=== PATIENT | male | born 1995 | race Caucasian/White ===

== ENCOUNTER → 2016-08-17 | Outpatient (REF) | payer MEDICAID ==
[2016-08-17 18:18] LABS: BASO % 0.3 % (0.0-1.0); EOS # 0.2 K/mm3 (0.0-0.50); EOS % 1.2 % (0.0-3.0); LYMPH # 1.8 K/mm3 (1.5-6.5); MEAN CORPUSCULAR HEMOGLOBIN 30.7 pg (27.0-33.0); MEAN CORPUSCULAR HGB CONC 31.3 g/dl (32.0-36.5); MEAN CORPUSCULAR VOLUME 98.2 fl (80.0-96.0); MONO # 0.8 K/mm3 (0.0-0.8); MONO % 6.9 % (0.0-5.0); NEUTROPHILS # 8.9 K/mm3 (1.8-7.7); NEUTROPHILS % 74.2 % (36.0-66.0)
[2016-08-17 19:27] LABS: ALBUMIN 3.9 GM/DL (3.2-5.2); ALBUMIN/GLOBULIN RATIO 1.11 (1.00-1.93); ALKALINE PHOSPHATASE 57 U/L (45-117); ALT/SGPT 21 U/L (12-78); ANION GAP 7 MEQ/L (8-16); AST/SGOT 21 U/L (15-37); BILIRUBIN,TOTAL 0.4 MG/DL (0.2-1.0); BLOOD UREA NITROGEN 13 MG/DL (7-18); CARBON DIOXIDE LEVEL 30 MEQ/L (21-32); CHLORIDE LEVEL 101 MEQ/L (98-107); CREATININE FOR GFR 1.21 MG/DL (0.70-1.30); GLOMERULAR FILTRATION RATE > 60.0 (>60); GLUCOSE, FASTING 79 MG/DL (70-105); POTASSIUM SERUM 4.6 MEQ/L (3.5-5.1); SODIUM LEVEL 138 MEQ/L (136-145); TOTAL PROTEIN 7.4 GM/DL (6.4-8.2)
== END ==
LOC: M LABDRAWC 16:38
PROVIDERS: ATTEND Internal Medicine
DX: M02.30 Reiter's disease, unspecified site (principal)

== ENCOUNTER → 2016-08-30 | Outpatient (REF) | payer OTHER ==
[2016-08-30 17:47] LABS: ANION GAP 8 MEQ/L (8-16); BLOOD UREA NITROGEN 11 MG/DL (7-18); CARBON DIOXIDE LEVEL 31 MEQ/L (21-32); CHLORIDE LEVEL 103 MEQ/L (98-107); CREATININE FOR GFR 1.15 MG/DL (0.70-1.30); GLOMERULAR FILTRATION RATE > 60.0 (>60); GLUCOSE, FASTING 85 MG/DL (70-105); POTASSIUM SERUM 4.5 MEQ/L (3.5-5.1); SODIUM LEVEL 142 MEQ/L (136-145)
== END ==
LOC: M LABDRAWC 16:11
PROVIDERS: ATTEND Internal Medicine
DX: R31.9 Hematuria, unspecified (principal)

== ENCOUNTER → 2016-09-19 | Outpatient (REF) | payer OTHER | LOC: M SMT 13:02 | PROVIDERS: ATTEND Specialist | DX: N50.819 Testicular pain, unspecified (principal); R31.29 Other microscopic hematuria ==

== ENCOUNTER → 2016-09-20 | Outpatient (CLI) | payer OTHER ==
--- NOTE | 2016-09-20 19:04 | REP ---
Scrotal sonography: History: Testicular pain. No comparison studies. Findings: High-resolution bilateral scrotal sonography shows no evidence of intratesticular mass on either side. Testicular Doppler flow is present bilaterally and is felt to be normal. Resistive indices are 0.58 on the right and 0.68 on the left. Right testicular dimensions are 3.4 x 1.8 x 2.5 cm. Left testis measures 3.5 x 1.6 x 2.6 cm. Epididymi are unremarkable. There is no other abnormalities seen. Impression: Normal bilateral scrotal sonography. Normal testicular Doppler flow. No intratesticular lesion. Signed by Paul Rainey MD 09/21/2016 10:43 A
== END ==
LOC: M RAD 16:19
PROVIDERS: ATTEND Specialist
DX: N50.819 Testicular pain, unspecified (principal)

== ENCOUNTER → 2016-09-24 | Outpatient (REF) | payer OTHER | LOC: M LAB REF 10:04 | PROVIDERS: ATTEND Physician Assistant | DX: R82.90 Unspecified abnormal findings in urine (principal) ==

== ENCOUNTER → 2016-10-02 | Outpatient (CLI) | payer OTHER ==
--- NOTE | 2016-10-02 14:26 | REP ---
MR LUMBAR SPINE WITHOUT CONTRAST: HISTORY: Sacroiliitis. Decreased signal intensity on T2-weighted images is present in the L1-2 and L4-5 intervertebral discs. The discs are decreased in height. These findings are consistent with disc degeneration. A diffuse disc bulge and small central disc extrusion are present at the L1-2 level. There is superior migration of disc material. There is minimal compression of the thecal sac without spinal cord compression. The L1 nerves exit the neural foramina without compression. There is no disc bulge or herniation at the L2-3 and L3-4 levels. The nerves exit the neural foraminal without compression. A diffuse disc bulge is present at the L4-5 level. There is minimal compression of the thecal sac. The 4 nerves exit the neural foramina without compression. A diffuse disc bulge is present at the L5-S1 level. There is minimal compression of the thecal sac. The L5 nerves exit the neural foramina without compression. The conus medullaris is normal in appearance terminating at the level of the L1-2 intervertebral disc. There is fatty infiltration of the filum terminale. A hemangioma is present in the L5 vertebral body. Increased signal intensity on T2-weighted images is present in the endplates of the L1 and L2 vertebral bodies. This represents degenerative change. IMPRESSION: 1. Diffuse disc bulge and small central disc extrusion at the L1-2 level with minimal thecal sac compression. 2. Diffuse disc bulges at the L4-5 and L5-S1 levels with minimal thecal sac compression. Signed by Tanvir Arango MD 10/02/2016 02:52 P
--- NOTE | 2016-10-02 14:54 | REP ---
MRI PELVIS/SACROILIAC JOINTS: Multiple sequences are obtained of the sacroiliac region in various planes. Both T1 and T2 weighted images are performed. No IV contrast was administered. Sacrum and visualized iliac bones demonstrate normal marrow signal with no bone marrow edema or occult fracture. There is no evidence of sacroiliitis. No abnormal signal is seen in the sacroiliac joints. A tiny amount of fluid in the inferior pelvis is of doubtful significance. No other fluid collections are seen in the visualized sacroiliac region. I see no other significant finding. IMPRESSION: No evidence of sacroiliitis or other significant abnormality in the region of the sacroiliac joints. Tiny amount of fluid in the inferior pelvis is of doubtful significance. Signed by Vinh Soriano MD 10/02/2016 03:33 P
[2016-10-02 15:45] LABS: BASO % 0.3 % (0.0-1.0); EOS # 0.1 K/mm3 (0.0-0.50); LYMPH # 2.4 K/mm3 (1.5-6.5); LYMPH % 19.6 % (24.0-44.0); MEAN CORPUSCULAR HEMOGLOBIN 30.9 pg (27.0-33.0); MEAN CORPUSCULAR HGB CONC 32.6 g/dl (32.0-36.5); MEAN CORPUSCULAR VOLUME 94.7 fl (80.0-96.0); MONO # 0.7 K/mm3 (0.0-0.8); MONO % 5.9 % (0.0-5.0); NEUTROPHILS % 71.1 % (36.0-66.0); RED CELL DISTRIBUTION WIDTH 12.5 % (11.5-14.5); WHITE BLOOD COUNT 11.3 K/mm3 (4.0-10.0)
[2016-10-02 15:59] LABS: ALBUMIN 3.7 GM/DL (3.2-5.2); ALBUMIN/GLOBULIN RATIO 1.32 (1.00-1.93); ALKALINE PHOSPHATASE 74 U/L (45-117); ALT/SGPT 22 U/L (12-78); ANION GAP 5 MEQ/L (8-16); AST/SGOT 20 U/L (15-37); BILIRUBIN,TOTAL 0.2 MG/DL (0.2-1.0); BLOOD UREA NITROGEN 18 MG/DL (7-18); CALCIUM LEVEL 8.8 MG/DL (8.5-10.1); CARBON DIOXIDE LEVEL 31 MEQ/L (21-32); CHLORIDE LEVEL 104 MEQ/L (98-107); CREATININE FOR GFR 1.35 MG/DL (0.70-1.30); GLOMERULAR FILTRATION RATE > 60.0 (>60); GLUCOSE, FASTING 110 MG/DL (70-105); POTASSIUM SERUM 4.2 MEQ/L (3.5-5.1); SODIUM LEVEL 140 MEQ/L (136-145); TOTAL PROTEIN 6.5 GM/DL (6.4-8.2)
--- NOTE | 2016-10-02 15:59 | REP ---
PARANASAL SINUSES: Four views paranasal sinuses performed. There appears to be trace mucosal thickening in the ethmoid sinuses. A single lateral view shows possible enlargement of the adenoids and palatine tonsils with no visualization of the nasopharyngeal airway. No air fluid levels are seen. IMPRESSION: Trace mucosal thickening ethmoid sinuses. No air fluid levels in the paranasal sinuses. Possible enlargement of adenoids and palatine tonsils. Signed by Vinh Soriano MD 10/02/2016 04:30 P
== END ==
LOC: M RAD 12:31
PROVIDERS: ATTEND Internal Medicine
DX: M02.30 Reiter's disease, unspecified site (principal); M51.26 Other intervertebral disc displacement, lumbar region; J32.2 Chronic ethmoidal sinusitis

== ENCOUNTER → 2016-10-25 | Outpatient (CLI) | payer OTHER ==
--- NOTE | 2016-11-04 23:56 | ECWPNPC ---
PATIENT NAME: KUNAL PRESLEY : 1995 GENDER: MALE VISIT DATE: 10/25/2016 DISCHARGE DATE: 10/25/16 1653 VISIT LOCKED DATE TIME: PHYSICIAN: RALF GRIGGS RESOURCE: RALF GRIGGS REASON FOR APPOINTMENT 1. CHRONIC PAIN HISTORY OF PRESENT ILLNESS GENERAL: 21 YEAR OLD MALE PATIENT WITH HISTORY OF CHRONIC BACK PAIN. PATIENT DESCRIBES THE PAIN ACHING, SHARP, STABBING, AND SHOOTING WITH A PAIN SCORE OF 10/10 ON TODAY'S VISIT. PATIENT STATES THAT HE IS UNSURE ON EXACTLY WHEN THE PAIN IN HIS BACK BEGAN AND IT COULD HAVE BEEN AROUND JULY 2015. PATIENT STATES THAT THE PAIN PROGRESSIVELY WORSENS WITH WORK EACH DAY. PATIENT STATES THAT HE DOES HAVE RADIATING PAIN DOWN BOTH HIS LEGS. PATIENT STATES THAT SITTING, STANDING, AND DRIVING FOR A PROLONGED PERIOD OF TIME INCREASES HIS PAIN. PATIENT STATES THAT HE DOES GET SOME MINOR RELIEF FROM LAYING FLAT ON HIS STOMACH AND DOING SOME PHYSICAL THERAPY EXERCISES. PATIENT DENIES UNEXPLAINABLE WEIGHT LOSS, FEVER, CHILLS, NEW CHANGES ON HIS URINARY OR BOWEL CONTROL. FALL RISK SCREENING: SCREENING :NO FALLS IN THE PAST YEAR PAIN SCREENING: PATIENT HAS A COMPLAINT OF ACUTE OR CHRONIC PAIN :YES CURRENT MEDICATIONS TAKING MULTIVITAMIN ADULT - TABLET ORALLY TAKING ZOFRAN 4 MG TABLET 1 TAB ORALLY Q8H PRN NAUSEA NOT-TAKING TYLENOL WITH CODEINE #3 NOT-TAKING AMOXICILLIN 250 MG/5ML SUSPENSION RECONSTITUTED 1 TSP SWISH AND SWALLOW ORALLY TID NOT-TAKING CRANBERRY PLUS VITAMIN C 140-100-3 MG-MG-UNIT CAPSULE ORALLY NOT-TAKING NAPROXEN 500 MG TABLET 1 TABLET NEEDED ORALLY EVERY 12 HRS, NOTES: MYNOR KEMP NOT-TAKING ONDANSETRON 4 MG TABLET DISPERSIBLE 1 TABLET ON THE TONGUE AND ALLOW TO DISSOLVE ORALLY EVERY 8 HRS, NOTES: BRETT ASHFORD NOT-TAKING ZYRTEC-D ALLERGY & CONGESTION 5-120 MG TABLET EXTENDED RELEASE 12 HOUR 1 TABLET ORALLY TWICE A DAY NOT-TAKING CLEAR EYES COMPLETE SOLUTION OPHTHALMIC NOT-TAKING PROBIOTIC TABLET DELAYED RELEASE ORALLY NOT-TAKING MAGNESIUM 500 MG TABLET 1 TABLET WITH A MEAL ORALLY ONCE A DAY NOT-TAKING MECLIZINE HCL 25 MG TABLET 1 TABLET NEEDED ORALLY THREE TIMES DAILY NEEDED, NOTES: BRETT ASHFORD NOT-TAKING GARLIC 300 MG TABLET 1 TAB ORALLY ONCE DAILY NOT-TAKING BACTRIM DS 800-160 MG TABLET 1 TABLET ORALLY TWICE A DAY NOT-TAKING NYSTATIN THROAT/SUSPENSION [id number] UNIT/ML SUSPENSION DIRECTED MOUTH/THROAT FOUR TIMES DAILY UNKNOWN ZOLOFT 100 MG TABLET 1 TABLET ORALLY ONCE A DAY, NOTES: NOT TAKING REFUSED MEDICATION LIST REVIEWED AND RECONCILED WITH THE PATIENT PAST MEDICAL HISTORY ACNE SEASONAL ALLERGIES 2013 INFECTIOUS MONONUCLEOSIS ALLERGIES CECLOR: UNSURE: ALLERGY DOXYCYCLINE: EDEMA: ALLERGY SURGICAL HISTORY TONSILECTOMY (DID NOT REMOVE ADNOIDS) [facility] 04/27 WISDOM TEETH EXTRACTION-LEFT SIDE TOP AND BOTTOM 03/28 FAMILY HISTORY FATHER: ALIVE 62 YRS, ESOPHAGUS CANCER, DIAGNOSED WITH CANCER MOTHER: ALIVE 49 YRS, CROHNS DISEASE PATERNAL GRAND FATHER: , CANCER,LUNG PATERNAL GRAND MOTHER: , CANCER MATERNAL GRAND FATHER: ALIVE, NO KNOWN MEDICAL PROBLEMS MATERNAL GRAND MOTHER: ALIVE, NO KNOWN MEDICAL PROBLEMS 2 BROTHER(S) - HEALTHY. NO KNOWN FAMILY HISTORY OF ANY UROLOGICALLY RELATED DISEASES/CANCERS. MOM HAS CROHN'S DISEASE. SOCIAL HISTORY GENERAL: TOBACCO USE ARE YOU A:NONSMOKER SMOKED AT AGE 14 X 1 YEAR 07/18 PPD BMI CARE GOAL FOLLOW-UP BELOW NORMAL BMI FOLLOW-UPDIETARY EDUCATION FOR WEIGHT GAIN ALCOHOL SCREENING POINTS: 4, INTERPRETATION: POSITIVE. RECREATIONAL DRUG USE DRUG USE?YES MARIJUANA USE DAILY CAFFEINE CAFFEINE USE?YES 2 CUPS/DAY SEXUAL HX HAD SEX IN THE LAST 12 MONTHS (VAGINAL, ORAL, OR ANAL)?: YES, WITH: WOMEN ONLY, USE PROTECTION?: YES, HOW OFTEN?: ALL OF THE TIME, HAVE YOU EVER HAD AN STD?: NO. HIV / HEP-C SCREENING HIV TEST OFFERED TO PATIENT:YES DATE OFFERED:09/05/2016 TEST ACCEPTED:NO REASON:PATIENT DECLINED HEP-C TEST OFFERED TO PATIENT:NO -N/A OCCUPATION: WORKS @ [employer]. DIET: REGULAR. EXERCISE: 6 DAYS WEEK AT GYM, NOT SINCE BECAME SICK. MARITAL STATUS: SINGLE. OTHERS AT HOME: FATHER. DENOMINATIONAL NO HINDU BELIEFS THAT WOULD IMPACT HEALTH CARE. LANGUAGE TURKISH. LEARNING BARRIERS / SPECIAL NEEDS BARRIERS TO LEARNING?NO HEARING IMPAIRED?NO VISION IMPAIRED?NO COGNITIVELY IMPAIRED?NO READINESS TO LEARN?YES LEARNING PREFERENCES?NO LEARNING CAPABILITIES PRESENT?YES EMOTIONAL BARRIERS?NO SPECIAL DEVICES?NO DENTAL AMALGAM PROCESSOR NEEDED?NO TRAVEL OUTSIDE US: DENIES. DOMESTIC VIOLENCE: NONE. SERGEI [facility]. HOSPITALIZATION/MAJOR DIAGNOSTIC PROCEDURE SURGERY REVIEW OF SYSTEMS CONSTITUTIONAL: ANY CHANGE IN YOUR MEDICAL CONDITION? YES PT TO HAVE COLONOSCOPY TO CHECK FOR CROHN'S DISEASE&NBSP;. CHILLS &NBSP;&NBSP; NO&NBSP;. FEVER &NBSP;&NBSP; NO&NBSP;. INFECTION: DO YOU HAVE NEW INFECTIONS? NO . DO YOU HAVE HISTORY OF MRSA? NO . MUSCULOSKELETAL: ANY NEW PATTERNS OF PAIN OR NUMBNESS? NO . SYTEMIC LUPUS NO . GASTROENTEROLOGY: ANY NEW CHANGE IN BOWEL CONTROL? NO . BARRETTS ESOPHAGUS NO . CIRRHOSIS NO . HEPATITIS NO . LIVER FAILURE NO . ACID REFLUX NO . UNEXPLAINED WEIGHT LOSS NO . GENITOURINARY: ANY NEW CHANGE IN BLADDER CONTROL? NO . IS THERE A CHANCE YOU COULD BE ? NO . HEMATOLOGY/LYMPH: DO YOU TAKE ANY BLOOD THINNERS? (FOR EXAMPLE- COUMADIN, PLAVIX, AGGRENOX, PLATEL, PRADAXA, OR XARELTO) NO . WHEN WAS YOUR LAST DOSE? DATE: TIME: . LOW PLATELET COUNT NO . SICKLE CELL DISEASE NO . VON WILLIEBRANDS NO . FACTOR V LEIDEN NO . THALLASEMIA NO . ANEMIA NO . EASY BRUISING NO . NEUROLOGY: HAVE YOU FALLEN IN THE PAST 6 MONTHS? NO . ANY NEW EXTREMITY NUMBNESS OR WEAKNESS? NO . HEAD INJURY NO . DEMENTIA NO . CEREBRAL PALSY NO . MULTIPLE SCLEROSIS NO . DIZZINESS NO . HEADACHE NO . STROKES NO . VERTIGO NO . CARDIOLOGY: DO YOU HAVE A PACEMAKER OR DEFIBRILLATOR? NO . ANGINA NO . HEART ATTACK NO . HEART SURGERY NO . CONGESTIVE HEART FAILURE/FLUID OVERLOAD NO . CHEST PAIN NO . HIGH BLOOD PRESSURE NO . IRREGULAR HEART BEAT NO . RESPIRATORY: HAVE YOU BEEN SICK IN THE PAST WEEK? NO . FEVER NO . FLU LIKE SYMPTOMS? NO . CPAP NO . BYPAP NO . ASTHMA NO . EMPHYSEMA NO . CHRONIC LUNG DISEASES NO . SHORTNESS OF BREATH ON EXERTION NO . COUGH NO . SNORING NO . INTEGUMENTARY: DO YOU HAVE ANY RASHES OR OPEN SORES? NO . ALLERGIC/IMMUNO: ARE YOU ALLERGIC TO SHELLFISH OR IV DYE? NO . ANY NEW ALLERGIES? NO . PSYCHIATRIC: DO YOU HAVE THOUGHTS OF HURTING YOURSELF OR SOMEONE ELSE? NO . ARE YOU ABUSED, NEGLECTED, OR IN AN UNSAFE ENVIRONMENT? NO . ENDOCRINOLOGY: ARE YOU DIABETIC? NO . THYROID DISORDER NO . OTHER: DO YOU NEED ANY PRESCRIPTIONS? NO . IF YES, PLEASE LIST: ____ . ANY NEW PROBLEMS WITH YOUR MEDICATIONS? NO . WHEN DID YOU LAST EAT? ____ . WHEN DID YOU LAST DRINK? ____ . WHAT DID YOU LAST DRINK? ____ . NAME OF PERSON DRIVING YOU HOME? ____ . DO YOU HAVE ANY OTHER QUESTIONS OR CONCERNS NO . REVIEWED BY: PROVIDER: RALF GRIGGS MD . VITAL SIGNS WT 157 LBS, HT 65 IN, BMI 26.12 INDEX, BP 153/70 MM HG, HR 52 /MIN, RR 16 /MIN, TEMP 98.7 F, OXYGEN SAT % 98, BLOOD GLUCOSE LEVEL AW 1532, REVIEWED BY: FARZANA. EXAMINATION GENERAL: PATIENT IS ALERT O X 3 AND COOPERATIVE. PATIENT IS ABLE TO FLEX HIS BACK TO 90 DEGREES AND EXTEND HIS BACK TO 10 DEGREES. THERE IS TENDERNESS IN THE LOW BACK PARASPINAL MUSCLE GROUP WITH BANDS OF TISSUES, RESTRICTION OF MOVEMENT, AND PRESENCE OF TRIGGER POINTS. PATIENT'S RIGHT LEG IS WEAKER AT FLEXION AND EXTENSION COMPARED TO THE LEFT LEG. STRAIGHT LEG RAISING IS POSITIVE FOR PAIN AT 45 DEGREES. PATIENT ALSO HAS SOME TENDERNESS IN THE SACROILIAC AREA. MRI OF THE LUMBAR SPINE DONE ON 10/02/2016 SHOWS DIS BULGES AND DISC EXTRUSIONS AT MULTIPLE LEVELS. ASSESSMENTS INTERVERTEBRAL DISC DISORDERS WITH RADICULOPATHY, LUMBOSACRAL REGION - M51.17 (PRIMARY) INTERVERTEBRAL DISC DISORDERS WITH RADICULOPATHY, LUMBAR REGION - M51.16 TREATMENT INTERVERTEBRAL DISC DISORDERS WITH RADICULOPATHY, LUMBOSACRAL REGION NOTES: WE DISCUSSED SEVERAL ISSUES WITH MR. PRESLEY'S PAIN MANAGEMENT CASE. AT THIS TIME THE PATIENT WILL CONTINUE ON THE SAME MEDICATION REGIMEN BEFORE. AFTER EXAMINING THE PATIENT AND REVIEWING THE MRI PATIENT IS A GOOD CANDIDATE FOR A LUMBAR EPIDURAL. WE DISCUSSED THE RISK, BENEFITS, AND ALTERNATIVES AND THE PATIENT WOULD LIKE TO PROCEED. PATIENT WILL BE BOOKED PENDING APPROVAL. INSTRUCTIONS WERE GIVEN, QUESTIONS WERE ANSWERED, PATIENT REPORTS UNDERSTANDING AND AGREES WITH THE PLAN. I, JASON GARCIA, DOCUMENTED THE ABOVE INFORMATION ACTING A SCRIBE FOR DR. GRIGGS. I HAVE REVIEWED THE ABOVE DOCUMENT, WRITTEN BY JASON CHATMANIBJob AND I VERIFY THAT IT IS ACCURATE. , DR. ESCAMILLA -THANK YOU FOR YOUR KIND REFERRAL OF MR. PRESLEY. IF YOU WOULD LIKE TO DISCUSS HIS CASE WITH ME, PLEASE CALL ME AT THE PAIN CENTER AT [phone]. OTHERS NOTES: WHAT IS LUMBAR EPIDURAL INJECTION? MATERIAL WAS PRINTED,LUMBAR EPIDURAL INJECTION: YOUR PROCEDURE MATERIAL WAS PRINTED,WHAT IS LUMBAR EPIDURAL INJECTION? MATERIAL WAS PRINTED. PROCEDURE CODES FA211 ESTABILISHED PATIENT [facility] CHARGE G8730 PAIN ASSESS POS TOOL F/U PLAN DOC G8427 DOC MEDS VERIFIED W/PT OR RE DISPOSITION & COMMUNICATION FOLLOW UP LESI PENDING APPROVAL ELECTRONICALLY SIGNED BY RALF GRIGGS MD ON 11/04/2016 AT 04:32 PM EDT DISCLAIMER : THIS IS A VISIT SUMMARY EXTRACTED FROM THE [employer] CHART. IT IS NOT A COPY OF THE [employer] PROGRESS NOTE. MTDD
== END ==
LOC: M PAIN 15:20
PROVIDERS: ATTEND Anesthesiology
DX: G89.29 Other chronic pain (principal); M51.17 Intervertebral disc disorders with radiculopathy, lumbosacral region; M51.16 Intervertebral disc disorders with radiculopathy, lumbar region; Z88.8 Allergy status to other drugs, medicaments and biological substances; Z79.899 Other long term (current) drug therapy

== ENCOUNTER → 2016-10-26 | Outpatient (CLI) | payer OTHER ==
[~2016-10-26] MED LIST: ISOVUE-M 300 61% 15ML VIAL (Q9967) As Ordered ONE; LIDOCAINE 1% SDV INJ 30 ML VIAL As Ordered ONE; diazePAM 5 MG TAB As Ordered ONE; methylPREDNISolone SUSP 40 MG/ML (DEPO-medrol) VIAL (J1030) As Ordered ONE; oxyCODONE 5MG TAB As Ordered ONE
--- NOTE | 2016-10-26 13:02 | REP ---
Partial lumbar spine series: Three views. History: Injection procedure for pain. 4 seconds of fluoroscopy time is reported. Findings: A sequence of three last image hold fluoroscopic spot radiographs of the lumbar spine document needle position and contrast injection associated with lumbar epidural injection procedure. Signed by Paul Rainey MD 10/26/2016 01:25 P
--- NOTE | 2016-10-31 23:18 | ECWPNPC ---
PATIENT NAME: KUNAL PRESLEY : 1995 GENDER: MALE VISIT DATE: 10/26/2016 DISCHARGE DATE: 10/26/16 1023 VISIT LOCKED DATE TIME: PHYSICIAN: RALF GRIGGS RESOURCE: RALF GRIGGS REASON FOR APPOINTMENT 1. LESI HISTORY OF PRESENT ILLNESS HISTORY OF PRESENT ILLNESS: PAIN THE PATIENT DESCRIBES THE PAIN... FALL RISK SCREENING: SCREENING :NO FALLS IN THE PAST YEAR CURRENT MEDICATIONS TAKING MULTIVITAMIN ADULT - TABLET ORALLY , NOTES: 10/25/16 TAKING ZOFRAN 4 MG TABLET 1 TAB ORALLY Q8H PRN NAUSEA, NOTES: 10/26/16 0500 NOT-TAKING TYLENOL WITH CODEINE #3 NOT-TAKING AMOXICILLIN 250 MG/5ML SUSPENSION RECONSTITUTED 1 TSP SWISH AND SWALLOW ORALLY TID NOT-TAKING CRANBERRY PLUS VITAMIN C 140-100-3 MG-MG-UNIT CAPSULE ORALLY NOT-TAKING NAPROXEN 500 MG TABLET 1 TABLET NEEDED ORALLY EVERY 12 HRS, NOTES: MYNOR KEMP NOT-TAKING ONDANSETRON 4 MG TABLET DISPERSIBLE 1 TABLET ON THE TONGUE AND ALLOW TO DISSOLVE ORALLY EVERY 8 HRS, NOTES: BRETT ASHFORD NOT-TAKING ZYRTEC-D ALLERGY & CONGESTION 5-120 MG TABLET EXTENDED RELEASE 12 HOUR 1 TABLET ORALLY TWICE A DAY NOT-TAKING CLEAR EYES COMPLETE SOLUTION OPHTHALMIC NOT-TAKING PROBIOTIC TABLET DELAYED RELEASE ORALLY NOT-TAKING MAGNESIUM 500 MG TABLET 1 TABLET WITH A MEAL ORALLY ONCE A DAY NOT-TAKING MECLIZINE HCL 25 MG TABLET 1 TABLET NEEDED ORALLY THREE TIMES DAILY NEEDED, NOTES: BRETT ASHFORD NOT-TAKING GARLIC 300 MG TABLET 1 TAB ORALLY ONCE DAILY NOT-TAKING BACTRIM DS 800-160 MG TABLET 1 TABLET ORALLY TWICE A DAY NOT-TAKING NYSTATIN THROAT/SUSPENSION 943914 UNIT/ML SUSPENSION DIRECTED MOUTH/THROAT FOUR TIMES DAILY UNKNOWN ZOLOFT 100 MG TABLET 1 TABLET ORALLY ONCE A DAY, NOTES: NOT TAKING REFUSED MEDICATION LIST REVIEWED AND RECONCILED WITH THE PATIENT PAST MEDICAL HISTORY ACNE SEASONAL ALLERGIES 2014 INFECTIOUS MONONUCLEOSIS RIETER'S ARTHRITIS ALLERGIES CECLOR: UNSURE: ALLERGY DOXYCYCLINE: EDEMA: ALLERGY SOCIAL HISTORY GENERAL: PAIN CLINIC PFS, CLERGY, PUBLIC HEALTH REFERRALS CLERGY REFERRAL NEEDED?NO WAS THE PROVIDER NOTIFIED OF ANY PERTINENT INFO?NO PFS REFERRAL NEEDED?NO PUBLIC HEALTH REFERRAL NEEDED?NO PATIENT: ____. REVIEW OF SYSTEMS CONSTITUTIONAL: ANY CHANGE IN YOUR MEDICAL CONDITION? YES BEING WOURKED UP FOR CROHN'S DISEASE&NBSP;. CHILLS &NBSP;&NBSP; NO&NBSP;. FEVER &NBSP;&NBSP; NO&NBSP;. INFECTION: DO YOU HAVE NEW INFECTIONS? NO . DO YOU HAVE HISTORY OF MRSA? NO . MUSCULOSKELETAL: ANY NEW PATTERNS OF PAIN OR NUMBNESS? NO . GASTROENTEROLOGY: ANY NEW CHANGE IN BOWEL CONTROL? NO . GENITOURINARY: ANY NEW CHANGE IN BLADDER CONTROL? NO . IS THERE A CHANCE YOU COULD BE ? NO . HEMATOLOGY/LYMPH: DO YOU TAKE ANY BLOOD THINNERS? (FOR EXAMPLE- COUMADIN, PLAVIX, AGGRENOX, PLATEL, PRADAXA, OR XARELTO) NO . WHEN WAS YOUR LAST DOSE? DATE: TIME: . NEUROLOGY: HAVE YOU FALLEN IN THE PAST 6 MONTHS? NO . ANY NEW EXTREMITY NUMBNESS OR WEAKNESS? NO . CARDIOLOGY: DO YOU HAVE A PACEMAKER OR DEFIBRILLATOR? NO . RESPIRATORY: HAVE YOU BEEN SICK IN THE PAST WEEK? NO . FEVER NO . FLU LIKE SYMPTOMS? NO . COUGH NO . INTEGUMENTARY: DO YOU HAVE ANY RASHES OR OPEN SORES? NO . ALLERGIC/IMMUNO: ARE YOU ALLERGIC TO SHELLFISH OR IV DYE? NO . ANY NEW ALLERGIES? NO . PSYCHIATRIC: DO YOU HAVE THOUGHTS OF HURTING YOURSELF OR SOMEONE ELSE? NO . ARE YOU ABUSED, NEGLECTED, OR IN AN UNSAFE ENVIRONMENT? NO . ENDOCRINOLOGY: ARE YOU DIABETIC? NO . OTHER: DO YOU NEED ANY PRESCRIPTIONS? NO . IF YES, PLEASE LIST: ____ . ANY NEW PROBLEMS WITH YOUR MEDICATIONS? NO . WHEN DID YOU LAST EAT? ____10/25/16 2100 . WHEN DID YOU LAST DRINK? ____10/26/16 0600 . WHAT DID YOU LAST DRINK? ____WATER . NAME OF PERSON DRIVING YOU HOME? ____CODY . DO YOU HAVE ANY OTHER QUESTIONS OR CONCERNS NO . REVIEWED BY: PROVIDER: . VITAL SIGNS WT 157 LBS, HT 65 IN, BMI 26.12 INDEX, BP 127/76 MM HG, HR 86 /MIN, RR 16 /MIN, TEMP 99.9 F, OXYGEN SAT % 99%, NA INITIALS SC09:06, REVIEWED BY: MLF. ASSESSMENTS INTERVERTEBRAL DISC DISORDERS WITH RADICULOPATHY, LUMBOSACRAL REGION - M51.17 (PRIMARY) PROCEDURES PRE PROCEDURE DIAGNOSIS LUMBOSACRAL RADICULOPATHY, LUMBOSACRAL DISC DISORDER WITH RADICULOPATHY POST PROCEDURE DIAGNOSIS LUMBOSACRAL RADICULOPATHY , LUMBOSACRAL DISC DISORDER WITH RADICULOPATHY PROCEDURE L5-S1 EPIDURAL STEROID INJECTION UNDER FLUOROSCOPIC GUIDANCE SURGEON DR. RALF GRIGGS ELECTRICAL APPLIANCE REPAIRER NONE ANESTHESIA LOCAL PRE PROCEDURE NOTE THE PATIENT HAS A HISTORY OF CHRONIC LOW BACK PAIN. I EVALUATE THE PATIENT AND REVIEWED THE CHART. I WENT OVER THE RISKS, ALTERNATIVES, AND BENEFITS ASSOCIATED WITH THIS PROCEDURE. THE PATIENT WOULD LIKE TO PROCEED AND GIVE CONSENT TO PERFORMED THE PROCEDURE. THE PATIENT DENIES UNEXPLAINABLE WEIGHT LOSS, FEVER, CHILLS, OR NEW CHANGES IN URINARY OR BOWEL CONTROL. DESCRIPTION OF PROCEDURE THE PATIENT WAS BROUGHT TO THE PROCEDURE ROOM AND PLACED IN THE PRONE POSITION. THE LUMBOSACRAL AREA WAS CLEANED WITH BETADINE SOLUTION AND DRAPED ASEPTICALLY. THE PROCEDURE WAS DONE UNDER STERILE CONDITIONS. I CHECKED LATERALITY AND THE LEVEL WHERE THE PROCEDURE WAS GOING TO BE PERFORMED WITH THE PATIENT AND THE SUPPORTING STAFF AT THE MOMENT OF THE TIME OUT IN THE PROCEDURE ROOM. UNDER FLUOROSCOPIC GUIDANCE, THE TARGET POINT WAS SELECTED AT THE INTERLAMINAR LEVEL OF L5-S1. LIDOCAINE WAS USED TO NUMB THE SKIN AND THE SUBCUTANEOUS TISSUE BELOW IT. EPIDURAL TUOHY NEEDLE, 17-GAUGE, WAS ADVANCED UNDER FLUOROSCOPIC GUIDANCE AND FOLLOWING PATIENT FEEDBACK UNTIL THE EPIDURAL SPACE WAS REACHED, 7 CM DEEP INTO THE SKIN BY THE LOSS OF RESISTANCE TECHNIQUE. ISOVUE M DYE 30%, 0.25 ML, WAS INJECTED SHOWING ADEQUATE SPREAD OF THE DYE. THEN, A SOLUTION OF 3 ML OF NORMAL SALINE WITH DEPO-MEDROL 60 MG WAS INJECTED SLOWLY FOLLOWING PATIENT FEEDBACK. THERE WAS NO EVIDENCE OF BLOOD, PARESTHESIA OR CEREBROSPINAL FLUID DURING THE PROCEDURE. THE PATIENT WAS SENT TO THE RECOVERY ROOM. THE PATIENT WAS MOVING THE EXTREMITIES AND DOING WELL. THERE WAS NO COMPLICATION DURING THE PROCEDURE. FLUOROSCOPY TIME WAS 4 SECONDS. POST PROCEDURE NOTE THE PATIENT WILL BE SEEN IN A FOLLOW UP IN THE NEXT FEW WEEKS. INSTRUCTIONS WERE GIVEN, QUESTIONS WERE ANSWERED, AND THE PATIENT EXPRESSED UNDERSTANDING AND AGREES WITH THE PLAN. I, JASON GARCIA, DOCUMENTED THE ABOVE INFORMATION ACTING A SCRIBE FOR DR. GRIGGS. I HAVE REVIEWED THE ABOVE DOCUMENT, WRITTEN BY JASON SKINNER AND I VERIFY THAT IT IS ACCURATE. DIAGNOSTIC IMAGING [facility] FLUORO GUIDE SPINE INJECTION (PAIN)[id number] PROCEDURE CODES 08269 LUMBAR/SACRAL W/ IMAGING 6045F RADXPS IN END [id number] PXD DISPOSITION & COMMUNICATION FOLLOW UP 3 WEEKS ELECTRONICALLY SIGNED BY RALF GRIGGS MD ON 10/31/2016 AT 01:03 PM EDT DISCLAIMER : THIS IS A VISIT SUMMARY EXTRACTED FROM THE [employer] CHART. IT IS NOT A COPY OF THE [employer] PROGRESS NOTE. MTDYuliet
== END ==
LOC: M PAIN 09:00
PROVIDERS: ATTEND Anesthesiology
DX: G89.29 Other chronic pain (principal); M51.17 Intervertebral disc disorders with radiculopathy, lumbosacral region; M02.30 Reiter's disease, unspecified site; M19.90 Unspecified osteoarthritis, unspecified site; Z88.8 Allergy status to other drugs, medicaments and biological substances; Z79.899 Other long term (current) drug therapy
CPT/HCPCS: 62323; J1030; Q9967

== ENCOUNTER → 2016-10-30 | Outpatient (REF) | payer OTHER ==
[2016-10-31 13:00] LABS: BASO % 0.3 % (0.0-1.0); EOS # 0.5 K/mm3 (0.0-0.50); EOS % 3.3 % (0.0-3.0); LYMPH # 2.5 K/mm3 (1.5-6.5); MEAN CORPUSCULAR HEMOGLOBIN 29.9 pg (27.0-33.0); MEAN CORPUSCULAR HGB CONC 32.3 g/dl (32.0-36.5); MEAN CORPUSCULAR VOLUME 92.4 fl (80.0-96.0); MONO # 0.9 K/mm3 (0.0-0.8); MONO % 6.4 % (0.0-5.0); NEUTROPHILS # 10.5 K/mm3 (1.8-7.7); RED CELL DISTRIBUTION WIDTH 12.8 % (11.5-14.5); WHITE BLOOD COUNT 14.4 K/mm3 (4.0-10.0)
[2016-10-31 13:18] LABS: ALBUMIN 3.9 GM/DL (3.2-5.2); ALBUMIN/GLOBULIN RATIO 1.18 (1.00-1.93); ALKALINE PHOSPHATASE 68 U/L (45-117); ALT/SGPT 27 U/L (12-78); ANION GAP 6 MEQ/L (8-16); AST/SGOT 40 U/L (15-37); BILIRUBIN,TOTAL 0.2 MG/DL (0.2-1.0); BLOOD UREA NITROGEN 18 MG/DL (7-18); CALCIUM LEVEL 8.4 MG/DL (8.5-10.1); CARBON DIOXIDE LEVEL 28 MEQ/L (21-32); CHLORIDE LEVEL 103 MEQ/L (98-107); CREATININE FOR GFR 0.99 MG/DL (0.70-1.30); GLOMERULAR FILTRATION RATE > 60.0 (>60); GLUCOSE, FASTING 87 MG/DL (70-105); POTASSIUM SERUM 4.1 MEQ/L (3.5-5.1); SODIUM LEVEL 137 MEQ/L (136-145); TOTAL PROTEIN 7.2 GM/DL (6.4-8.2)
== END ==
LOC: M LABDRAWC 11:54
PROVIDERS: ATTEND Internal Medicine
DX: M02.30 Reiter's disease, unspecified site (principal)

== ENCOUNTER → 2016-11-30 | Outpatient (CLI) | payer OTHER ==
[~2016-11-30] MED LIST changes: +E-Z-GAS II EFFERVESCENT PACKET (SODIUM BICARB./CITRIC ACID/SIMETHICONE) As Ordered ONE; +E-Z-HD 98% w/w 340GM SUSP BTL As Ordered ONE; +E-Z-PAQUE 96% w/w SUSP 176GM BTL As Ordered ONE; -ISOVUE-M 300 61% 15ML VIAL (Q9967) As Ordered ONE; -LIDOCAINE 1% SDV INJ 30 ML VIAL As Ordered ONE; -diazePAM 5 MG TAB As Ordered ONE; -methylPREDNISolone SUSP 40 MG/ML (DEPO-medrol) VIAL (J1030) As Ordered ONE; -oxyCODONE 5MG TAB As Ordered ONE
--- NOTE | 2016-11-30 16:57 | REP ---
UPPER GI AIR CONTRAST AND SMALL BOWEL FOLLOW-THROUGH: The procedure was performed under the direct supervision of Dr. Rainey. The images were reviewed with Dr. Rainey. The overnight houseperson film shows no organomegaly or pathological masses. The intestinal gas pattern is nonspecific. Liquid barium and gas producing granules were given in the erect position as well as liquid barium in the prone oblique position in order to perform a double contrast upper GI examination. Additionally liquid barium was given at the end of the examination in order to perform a small bowel follow-through. The oral and pharyngeal stages of deglutition are unremarkable. Esophageal transport is prompt and efficient and there is no esophagitis, stricture, mucosal ring, or hiatal hernia. There is gastroesophageal reflux demonstrated to above the level of the arnulfo. The stomach nation are normally outlined. The rugal folds are smooth and regular. There is no gastritis, neoplasm or ulcer disease. The duodenal nation are normally outlined. The mucosal folds are smooth and regular. There is no duodenitis, pancreatitis, peptic ulcer disease, or neoplasm. The visualized portion of the proximal small bowel appears normal in course and caliber. The barium column was followed through the small bowel to the level of the terminal ileum. Small bowel transit time was approximately 30 minutes. During fluoroscopy gentle palpation shows all loops are freely movable and pliable. There are no fixed or angulated loops. The small bowel mucosal pattern is normal in course and caliber. There is no transition to suggest a partial small bowel obstruction. Spot filming of terminal ileum shows it to be unremarkable. IMPRESSION: There is gastroesophageal reflux demonstrated to above the level of the arnulfo, otherwise unremarkable double contrast upper GI and small bowel follow-through examination. 2 minutes and 26 seconds of fluoroscopy time was utilized for this procedure. Reviewed by IRVING Jessica 12/03/2016 05:35 PEdited and Signed by Paul Rainey MD 12/04/2016 05:04 P
== END ==
LOC: M RAD 08:15
PROVIDERS: ATTEND Internal Medicine
DX: K50.90 Crohn's disease, unspecified, without complications (principal)

== ENCOUNTER → 2017-03-28 | Outpatient (REF) | payer OTHER | LOC: M LAB REF 09:18 | PROVIDERS: ATTEND Internal Medicine | DX: M47.011 Anterior spinal artery compression syndromes, occipito-atlanto-axial region (principal) ==

== ENCOUNTER → 2017-08-02 | Outpatient (REF) | payer OTHER, MEDICAID ==
[2017-08-02 14:00] LABS: MYOGLOBIN SCREEN, URINE POSITIVE (NEGATIVE)
[2017-08-02 14:13] LABS: INR 1.07
[2017-08-02 14:14] LABS: PARTIAL THROMBOPLASTIN TIME 33.6 SECONDS (26.8-37.9)
[2017-08-02 14:39] LABS: COMPLEMENT C3 123 MG/DL (90-180); COMPLEMENT C4 27.2 MG/DL (10-40); CPK CREATINE PHOSPHOKINASE 264 U/L (39-308)
[2017-08-02 14:48] LABS: HEPATITIS B SURFACE ANTIBODY NEGATIVE (POSITIVE)
[2017-08-02 15:26] LABS: HEPATITIS C VIRUS ABY INDEX 0.1 INDEX (<0.8)
[2017-08-02 15:27] LABS: HEPATITIS B CORE ANTIBODY IGM NEGATIVE (NEGATIVE)
[2017-08-02 15:32] LABS: HEPATITIS B SURFACE ANTIGEN NEGATIVE (NEGATIVE)
[2017-08-06 00:06] LABS: ANCA-ATYPICAL <1:20 titer (Neg:<1:20); ANTI DOUBLE STRAND-DNA AB 1 IU/mL (0-9); ANTI-GLOMERULAR BASEMENT MEMB 3 units (0-20); ANTINUCLEAR ANTIBODIES DIRECT Negative (Negative); CYTOPLASMIC NEUTROP AB ANCA-C <1:20 titer (Neg:<1:20); PERINUCLEAR AB ANCA-P <1:20 titer (Neg:<1:20)
== END ==
LOC: M LAB REF 13:16
DX: R31.9 Hematuria, unspecified (principal); R79.89 Other specified abnormal findings of blood chemistry

== ENCOUNTER → 2017-09-02 | Outpatient (CLI) | payer OTHER ==
[~2017-09-02] MED LIST changes: -E-Z-GAS II EFFERVESCENT PACKET (SODIUM BICARB./CITRIC ACID/SIMETHICONE) As Ordered ONE; -E-Z-HD 98% w/w 340GM SUSP BTL As Ordered ONE; -E-Z-PAQUE 96% w/w SUSP 176GM BTL As Ordered ONE; +ISOVUE-370 76% 100ML VIAL (Q9967) As Ordered
== END ==
LOC: M RAD 08:26
DX: R31.9 Hematuria, unspecified (principal); M51.27 Other intervertebral disc displacement, lumbosacral region
CPT/HCPCS: Q9967

== ENCOUNTER 2017-09-19 11:01 | Emergency (ER) | payer OTHER | END 2017-09-19 12:22 | disposition home or self-care (01) | LOC: M ED 11:01 | DX: B37.0 Candidal stomatitis (principal) | CPT/HCPCS: 99282 ==

== ENCOUNTER → 2017-10-14 | Outpatient (REF) | payer OTHER ==
[2017-10-14 13:08] LABS: BASO % 0.2 % (0.0-1.0); EOS # 0.1 10^3/uL (0.0-0.50); EOS % 1.5 % (0.0-3.0); HEMATOCRIT 44.1 % (42.0-52.0); HEMOGLOBIN 14.2 g/dl (13.5-17.5); IMMATURE GRANULOCYTE % 0.3 % (0-3.0); LYMPH # 1.9 10^3/uL (1.5-6.5); MEAN CORPUSCULAR HEMOGLOBIN 27.7 pg (27.0-33.0); MEAN CORPUSCULAR HGB CONC 32.2 g/dl (32.0-36.5); MONO # 0.8 10^3/uL (0.0-0.8); MONO % 8.5 % (0.0-5.0); NEUTROPHILS # 6.5 10^3/uL (1.8-7.7); NEUTROPHILS % 69.5 % (36.0-66.0); PLATELET COUNT, AUTOMATED 365 10^3/uL (150-450); RED BLOOD COUNT 5.13 10^6/uL (4.30-6.10); RED CELL DISTRIBUTION WIDTH 13.9 % (11.5-14.5); WHITE BLOOD COUNT 9.4 10^3/uL (4.0-10.0)
[2017-10-14 13:46] LABS: ALBUMIN 3.9 GM/DL (3.2-5.2); ALBUMIN/GLOBULIN RATIO 1.11 (1.00-1.93); ALKALINE PHOSPHATASE 79 U/L (45-117); ALT/SGPT 37 U/L (12-78); ANION GAP 7 MEQ/L (8-16); AST/SGOT 27 U/L (7-37); BILIRUBIN,TOTAL 0.3 MG/DL (0.2-1.0); BLOOD UREA NITROGEN 16 MG/DL (7-18); C REACTIVE PROTEIN QUANTITATIV 0.96 MG/DL (0.00-0.30); CALCIUM LEVEL 8.5 MG/DL (8.5-10.1); CARBON DIOXIDE LEVEL 26 MEQ/L (21-32); CHLORIDE LEVEL 106 MEQ/L (98-107); CREATININE FOR GFR 1.16 MG/DL (0.70-1.30); GLOMERULAR FILTRATION RATE > 60.0 (>60); GLUCOSE, FASTING 91 MG/DL (70-100); LIPASE 111 U/L (73-393); POTASSIUM SERUM 4.6 MEQ/L (3.5-5.1); SODIUM LEVEL 139 MEQ/L (136-145); TOTAL PROTEIN 7.4 GM/DL (6.4-8.2)
[2017-10-14 17:05] LABS: APPEARANCE, URINE CLEAR (CLEAR); BACTERIA, URINE AUTO NEGATIVE (NEGATIVE); BILIRUBIN, URINE AUTO NEGATIVE (NEGATIVE); BLOOD, URINE BLOOD NEGATIVE (NEGATIVE); COLOR, URINE YELLOW (YELLOW); GLUCOSE, URINE (UA) AUTO NEGATIVE (NEGATIVE); KETONE, URINE AUTO NEGATIVE (NEGATIVE); LEUKOCYTE ESTERASE, URINE AUTO NEGATIVE (NEGATIVE); MUCUS, URINE SMALL (NEGATIVE); NITRITE, URINE AUTO NEGATIVE (NEGATIVE); PROTEIN, URINE AUTO NEGATIVE (NEGATIVE); RBC, URINE AUTO 2 /HPF (0-3); SQUAMOUS EPITHELIAL CELL UR AU 0 /HPF (0-6); UROBILINOGEN, URINE AUTO 0.2 mg/dL (0.0-2.0); WBC, URINE AUTO 0 /HPF (0-3)
[2017-10-14 18:12] LABS: TOTAL PROTEIN,RANDOM URINE 21.2 MG/DL (0.0-12.0)
[2017-10-14 19:32] LABS: CHLAMYDIA DNA AMPLIFICATION NEGATIVE (NEGATIVE); GC DNA AMPLIFICATION NEGATIVE (NEGATIVE)
== END ==
LOC: M SFHCPLAZ 11:08
DX: K92.1 Melena (principal); N41.0 Acute prostatitis; R10.84 Generalized abdominal pain; R79.89 Other specified abnormal findings of blood chemistry; M02.30 Reiter's disease, unspecified site; R19.7 Diarrhea, unspecified
CPT/HCPCS: 83690

== ENCOUNTER → 2017-10-25 | Outpatient (REF) | payer OTHER | LOC: M LAB REF 17:50 | DX: R10.84 Generalized abdominal pain (principal) ==

== ENCOUNTER → 2017-11-01 | Outpatient (REF) | payer OTHER ==
[2017-11-01 13:21] LABS: FREE T4 0.91 NG/DL (0.76-1.46)
[2017-11-03 00:06] LABS: TISSUE TRANSGLUTAMINASE IgA <2 U/mL (0-3)
[2017-11-05 00:08] LABS: CHROMOGRANIN A 2 nmol/L (0-5)
[2017-11-05 00:08] LABS: GASTRIN < 10 pg/mL (0-115)
== END ==
LOC: M LABDRAWC 11:52
DX: R10.84 Generalized abdominal pain (principal)

== ENCOUNTER 2017-11-08 08:31 | Day surgery (SDC) | payer OTHER | END 2017-11-08 12:59 | disposition home or self-care (01) | LOC: M OPP 08:31 | DX: Z53.9 Procedure and treatment not carried out, unspecified reason (principal) ==

== ENCOUNTER 2018-02-20 07:26 | Day surgery (SDC) | payer OTHER ==
[~2018-02-20 07:26] MED LIST changes: -ISOVUE-370 76% 100ML VIAL (Q9967) As Ordered; +LIDOCAINE 2% INJ 100 MG/5 ML SDV (FOR ANES.) As Ordered; +PROPOFOL 200 MG/20 ML VIAL As Ordered
[2018-02-20] MEDS: NS 1,000 ML IV (07:30)
[2018-02-20] MEDS ORDERED: PROPOFOL 200 MG/20 ML VIAL As Ordered (08:35)
== END 2018-02-20 09:21 | disposition home or self-care (01) ==
LOC: M OPP 07:26
DX: R10.84 Generalized abdominal pain (principal); M02.30 Reiter's disease, unspecified site; R19.4 Change in bowel habit; R10.13 Epigastric pain; K44.9 Diaphragmatic hernia without obstruction or gangrene; E16.2 Hypoglycemia, unspecified; R63.4 Abnormal weight loss; R63.0 Anorexia; K21.9 Gastro-esophageal reflux disease without esophagitis; R12 Heartburn; M19.90 Unspecified osteoarthritis, unspecified site; R79.89 Other specified abnormal findings of blood chemistry; Z88.1 Allergy status to other antibiotic agents; Z79.899 Other long term (current) drug therapy; Z80.8 Family history of malignant neoplasm of other organs or systems
CPT/HCPCS: 45378

== ENCOUNTER 2021-04-05 06:44 | Emergency (ER) | payer OTHER ==
[~2021-04-05] VITALS: Ht 167.6 cm; Wt 58.0 kg
[~2021-04-05 06:44] MED LIST changes: -LIDOCAINE 2% INJ 100 MG/5 ML SDV (FOR ANES.) As Ordered; +MAGICMW MT; +NYST50SS SS; +PANT40TA29 PO; -PROPOFOL 200 MG/20 ML VIAL As Ordered; +ZOFR4TAB16 PO
[2021-04-05] MEDS ORDERED: ZYRTTAB8 PO (09:01)
[2021-04-05] MEDS ORDERED: KETOROLAC 30 MG/ML 1ML VIAL IV ONE (09:45)
[2021-04-05] MEDS ORDERED: NS 1,000 ML IV ONE (09:45)
--- NOTE | 2021-04-05 10:07 | REP ---
INDICATION: chest pain COMPARISON: 08/18/2013. TECHNIQUE: PA/Lateral FINDINGS: Lungs: Clear, no infiltrate. Heart: Normal in size. Mediastinum: Mediastinal silhouette unremarkable. Pleural angles: Unremarkable.. Bones and soft tissues: Unremarkable. IMPRESSION: No acute pulmonary disease. <Electronically signed by Vinh Soriano > 04/05/21 1001
[2021-04-05 10:11] LABS: BASO % 0.5 % (0.0-1.0); EOS % 0.6 % (0.0-3.0); HEMATOCRIT 44.6 % (42.0-52.0); HEMOGLOBIN 14.9 g/dl (13.5-17.5); LYMPH # 1.4 10^3/uL (1.5-5.0); MEAN CORPUSCULAR HGB CONC 33.4 g/dl (32.0-36.5); MEAN CORPUSCULAR VOLUME 95.7 fl (80.0-96.0); MONO # 0.5 10^3/uL (0.0-0.8); MONO % 7.8 % (2.0-8.0); NEUTROPHILS # 4.6 10^3/uL (1.5-8.5); NEUTROPHILS % 69.8 % (36.0-66.0); PLATELET COUNT, AUTOMATED 236 10^3/uL (150-450); RED BLOOD COUNT 4.66 10^6/uL (4.30-6.10); WHITE BLOOD COUNT 6.6 10^3/uL (4.0-10.0)
[2021-04-05 10:44] LABS: CPK CREATINE PHOSPHOKINASE 147 U/L (39-308); MB/CK RELATIVE INDEX 0.68 (< OR =4); TROPONIN I < 0.02 NG/ML (< 0.10)
[2021-04-05] MEDS ORDERED: NAPR-837 PO (11:12)
[2021-04-05 11:22] VITALS: BP 127/60
--- NOTE | 2021-04-06 23:53 | ECGEPIP ---
[facility] - ED Test Date: 2021-04-05 Pat Name: KUNAL PRESLEY Department: Room: - Gender: Male Certifier: carlo : 1995 Requested By: DIANA Jefferson PA-C Order Number: [id number] Reading MD: Vinh Hickey Measurements Intervals [place] Rate: 73 P: 53 MS: 170 QRS: 7 QRSD: 92 T: 65 QT: 408 QTc: 449 Interpretive Statements Normal sinus rhythm POOR R WAVE PROGRESSION NO PRIORS FOR COMPARISON Electronically Signed on 04-06-2021 23:53:05 EDT by Vinh Hickey
== END 2021-04-05 11:24 | disposition home or self-care (01) ==
LOC: M ED 06:44
DX: M94.0 Chondrocostal junction syndrome [Tietze] (principal); R07.89 Other chest pain
CPT/HCPCS: 71046; 80047; 82550; 82553; 85025; 85379; 93005; 96361; 96374; 99284; J1885

== ENCOUNTER 2021-07-03 14:51 | Emergency (ER) | payer BC, OTHER ==
[~2021-07-03 14:51] MED LIST changes: +NAPR-837 PO; +ZYRTTAB8 PO
[2021-07-03 15:49] LABS: BASO % 0.6 % (0.0-1.0); EOS # 0.1 10^3/uL (0.0-0.5); EOS % 1.8 % (0.0-3.0); HEMOGLOBIN 9.3 g/dl (13.5-17.5); LYMPH # 1.4 10^3/uL (1.5-5.0); LYMPH % 24.8 % (24.0-44.0); MEAN CORPUSCULAR HEMOGLOBIN 31.3 pg (27.0-33.0); MEAN CORPUSCULAR HGB CONC 32.1 g/dl (32.0-36.5); MEAN CORPUSCULAR VOLUME 97.6 fl (80.0-96.0); MONO # 0.6 10^3/uL (0.0-0.8); NEUTROPHILS # 3.3 10^3/uL (1.5-8.5); NEUTROPHILS % 61.4 % (36.0-66.0); PLATELET COUNT, AUTOMATED 157 10^3/uL (150-450); RED BLOOD COUNT 2.97 10^6/uL (4.30-6.10); WHITE BLOOD COUNT 5.4 10^3/uL (4.0-10.0)
[2021-07-03] MEDS ORDERED: ISOVUE-370 76% 100ML VIAL As Ordered ONE (16:01)
[2021-07-03 16:29] LABS: ALBUMIN 3.3 GM/DL (3.2-5.2); ALT/SGPT 22 U/L (12-78); BILIRUBIN,DIRECT 0.1 MG/DL (0.0-0.2); BILIRUBIN,TOTAL 0.2 MG/DL (0.2-1.0); BLOOD UREA NITROGEN 16 MG/DL (7-18); CALCIUM LEVEL 6.8 MG/DL (8.5-10.1); CARBON DIOXIDE LEVEL 23 MEQ/L (21-32); CHLORIDE LEVEL 116 MEQ/L (98-107); FREE T4 1.01 NG/DL (0.76-1.46); GLOMERULAR FILTRATION RATE > 60.0 (>60); GLUCOSE, FASTING 80 MG/DL (70-100); LIPASE 48 U/L (73-393); POTASSIUM SERUM 3.2 MEQ/L (3.5-5.1); SODIUM LEVEL 145 MEQ/L (136-145); TOTAL PROTEIN 5.1 GM/DL (6.4-8.2)
[2021-07-03 16:30] VITALS: BP 120/77
== END 2021-07-03 16:50 | disposition left against medical advice (07) ==
LOC: M ED 14:51 → EDBD 14:51 → M ED 16:50
DX: R07.9 Chest pain, unspecified (principal); E83.51 Hypocalcemia; E87.6 Hypokalemia; D64.9 Anemia, unspecified; F17.200 Nicotine dependence, unspecified, uncomplicated; Z88.1 Allergy status to other antibiotic agents; Z53.21 Procedure and treatment not carried out due to patient leaving prior to being seen by health care provider
CPT/HCPCS: 71045; 71275; 80047; 80048; 80076; 82330; 83690; 84439; 84443; 84484; 85025; 93005; 93041; 94760; 99285; Q9967

== ENCOUNTER 2024-10-29 00:15 | Emergency (ER) | payer BC, OTHER ==
[~2024-10-29] VITALS: Ht 167.6 cm; Wt 62.1 kg
[~2024-10-29 00:15] MED LIST changes: +NYST-38 SS; -NYST50SS SS
[2024-10-29] MEDS: ONDANSETRON 4MG ORAL DISINTEGRATING TAB PO ONE (01:42)
[2024-10-29] MEDS ORDERED: IBUP80TA PO (03:45)
[2024-10-29] MEDS ORDERED: PERC5TAB12 PO (03:45)
[2024-10-29] MEDS ORDERED: CLEO300C2 PO (03:48)
[2024-10-29 03:53] VITALS: BP 119/73; TEMP 99.4; O2SAT 99
[2024-10-29] MEDS: OXYCODONE/APAP 5MG/325MG(HOME DOSE PACK) PO ONE (04:10)
== END 2024-10-29 04:15 | disposition home or self-care (01) ==
LOC: M ED 00:15
DX: S02.40CA Maxillary fracture, right side, initial encounter for closed fracture (principal); S02.641B Fracture of ramus of right mandible, initial encounter for open fracture; S02.602A Fracture of unspecified part of body of left mandible, initial encounter for closed fracture; Y04.2XXA Assault by strike against or bumped into by another person, initial encounter; Y92.89 Other specified places as the place of occurrence of the external cause; Y93.89 Activity, other specified; Y99.0 Civilian activity done for income or pay